=== PATIENT | female | born 1985 | race Caucasian/White ===

== ENCOUNTER 2018-07-10 20:24 | Emergency (ER) | payer BC ==
[2018-07-10 20:47] VITALS: BP 116/74
--- NOTE | 2018-07-10 21:10 | UC ---
Ear Complaint HPI - HPI Summary HPI Summary: C/O left ear pain x 3 days with sore throat on the left side. Mild allergy symptoms. Occasional tickle cough. - History of Current Complaint Chief Complaint: UCEar Stated Complaint: LEFT EAR PAIN Time Seen by Provider: 07/10/18 21:02 Hx Obtained From: Patient Hx Last Menstrual Period: 07/04/18 Onset/Duration: Sudden Onset, Lasting Days - 3, Worse Since - today Severity Initially: Mild Severity Currently: Moderate Pain Intensity: 5 Aggravating Factors: Nothing Alleviating Factors: Heat Associated Signs/Symptoms: Positive: URI Symptoms. Negative: Hearing Loss Related History: Seasonal Allergies - Allergies/Home Medications Allergies/Adverse Reactions: Allergies Allergy/AdvReac Type Severity Reaction Status Date / Time bee venom protein (honey bee) Allergy Swelling Verified 07/10/18 20:39 Of Face,Lips,& Throat morphine Allergy Itching Verified 07/10/18 20:39 wheat Allergy Swelling Verified 07/10/18 20:39 dairy Allergy GI Upset Uncoded 07/10/18 20:39 Home Medications: Home Medications Acetaminophen [Tylenol Extra Strength] 1,000 mg PO Q6H PRN 07/10/18 [History Confirmed 07/10/18] Ibuprofen TAB* [Advil TAB*] 400 mg PO Q6H PRN 07/10/18 [History Confirmed ] SUMAtriptan TAB* [Imitrex TAB*] 25 mg PO SEE INSTRUCTIONS PRN 07/10/18 [History Confirmed 07/10/18] PMH/Surg Hx/FS Hx/Imm Hx Previously Healthy: Yes - Surgical History Surgical History: Yes Surgery Procedure, Year, and Place: LEFT PUBIC BONE BX, - Family History Known Family History: Positive: Cardiac Disease, Hypertension, Diabetes - Social History Occupation: Employed Full-time Lives: With Family Alcohol Use: None Substance Use Type: None Smoking Status (MU): Former Smoker When Did the Patient Quit Smoking/Using Tobacco: 2007 Review of Systems All Other Systems Reviewed And Are Negative: Yes ENT: Positive: Sore Throat, Ear Ache Is Patient Immunocompromised?: No Physical Exam Triage Information Reviewed: Yes Appearance: Well-Appearing, Well-Nourished, Pain Distress - mild Vital Signs: Initial Vital Signs Temp 98.3 F 07/10/18 20:43 Pulse 89 11/11/18 20:43 Resp 14 07/10/18 20:43 BP 116/74 07/10/18 20:43 Pulse Ox 100 07/10/18 20:43 Vital Signs Reviewed: Yes Eyes: Positive: Conjunctiva Clear ENT: Positive: Nasal congestion - with allergic changes, TMs normal Neck: Positive: Tenderness @ - left SCM with trigger point Respiratory Exam: Normal Cardiovascular Exam: Normal Musculoskeletal Exam: Normal Neurological Exam: Normal Psychological Exam: Normal Skin Exam: Normal Ear Complaint Course/Dx - Differential Dx/Diagnosis Differential Diagnosis/HQI/PQRI: Cerumen Impaction, Mastoiditis, Otitis Externa , Otitis Media Provider Diagnoses: Cervicalgia Discharge - Sign-Out/Discharge Documenting (check all that apply): Patient Departure All imaging exams completed and their final reports reviewed: No Studies - Discharge Plan Condition: Stable Disposition: HOME Patient Education Materials: Cervical Strain (ED) Referrals: Pranav Lizama DO [Primary Care Provider] - Additional Instructions: Try aspercreme or Icyhot with massage to work out the knots in the muscles. - Billing Disposition and Condition Condition: STABLE Disposition: Home
== END 2018-07-10 21:27 | disposition home or self-care (01) ==
LOC: UCCORT 20:24
DX: M54.2 Cervicalgia (principal); H92.02 Otalgia, left ear; J02.9 Acute pharyngitis, unspecified; Z88.5 Allergy status to narcotic agent; Z91.030 Bee allergy status; Z87.891 Personal history of nicotine dependence
CPT/HCPCS: 99211; G0463